=== PATIENT | male | born 1960 | race Caucasian/White ===

== ENCOUNTER 2017-02-28 17:54 | Emergency (ER) | payer OTHER ==
[~2017-02-28] VITALS: Ht 170.2 cm; Wt 65.0 kg
[~2017-02-28 17:54] MED LIST: EPIPEN 2-PAK1 MG/ML IM; GENTAMICIN EYE D5 ML OP; MOTRIN 200200 MG/TAB PO; MOTRIN 800800 MG/TAB PO; NORCO 325 MG-51 TAB PO; PERCOCET 325 MG1 TA2 PO; PRILOTC PO; PROTONIX20 MG; ZOLOFT25 MG PO
[2017-02-28 18:53] LABS: BASO % 0.5 % (0.0-2.0); EOS % 0.4 % (0-4.0); GRAN # 6.4 (1.4-6.5); GRAN % 82.4 % (42.2-75.2); HEMATOCRIT 47.1 % (42.0-52.0); HEMOGLOBIN 17.3 g/dl (13.5-18.0); LYMPH % 12.3 % (20.0-51.0); MEAN CELL VOLUME 90 fl (80.0-100.0); MEAN CORPUSCULAR HEMOGLOBIN 33 pg (27.0-31.0); MEAN CORPUSCULAR HGB CONC 37 g/dl (33.0-37.0); MEAN PLATELET VOLUME 8.8 fl (7.4-10.4); MONO # 0.3 (0.1-0.6); MONO % 4.1 % (1.7-9.3); PLATELET COUNT 194 K/mm3 (130-400); RED BLOOD COUNT 5.25 M/mm3 (4.20-5.60); REDCELL DISTRIBUTION WIDTH-CV 12.7 % (11.5-14.5)
[2017-02-28 19:02] LABS: ALANINE AMINOTRANSFERASE 45 U/L (21-72); ALBUMIN 4.8 gm/dL (3.5-5.0); ALCOHOL(ethanol),MEDICAL 238 mg/dL; ALKALINE PHOSPHATASE 91 U/L (50-136); ANION GAP 16 mmol/L (7-16); AST,SGOT 46 U/L (15-37); BILIRUBIN,TOTAL 1.2 mg/dL (0.0-1.0); BLOOD UREA NITROGEN 3 mg/dL (9-20); CALCIUM 9.3 mg/dL (8.4-10.2); CARBON DIOXIDE 24 mmol/L (22-30); CHLORIDE 101 mmol/L (98-107); CREATININE, serum 0.85 mg/dL (0.66-1.25); GLUCOSE 198 mg/dL (74-106); POTASSIUM 3.9 mmol/L (3.4-5.0); SODIUM 140 mmol/L (137-145); TOTAL PROTEIN 7.4 gm/dL (6.4-8.2)
[2017-02-28 19:03] LABS: TRICYCLIC ANTIDEPRESS URINE NEGATIVE
[2017-02-28 19:04] LABS: ACETAMINOPHEN < 10 ug/mL (10-30); SALICYLATE < 1.0 mg/dL
[2017-02-28 23:42] VITALS: BP 124/90; PULSE 90
== END 2017-02-28 23:43 | disposition short-term general hospital (02) ==
LOC: COL.ER 17:54
PROVIDERS: Family Medicine
DX: S06.4X9A Epidural hemorrhage with loss of consciousness of unspecified duration, initial encounter (principal); F10.99 Alcohol use, unspecified with unspecified alcohol-induced disorder; Y90.8 Blood alcohol level of 240 mg/100 ml or more; W18.39XA Other fall on same level, initial encounter; W22.8XXA Striking against or struck by other objects, initial encounter; Y92.009 Unspecified place in unspecified non-institutional (private) residence as the place of occurrence of the external cause

== ENCOUNTER 2018-04-14 14:01 | Emergency (ER) | payer OTHER | END 2018-04-14 17:06 | disposition home or self-care (01) | LOC: COL.ER 14:01 | DX: R03.0 Elevated blood-pressure reading, without diagnosis of hypertension (principal); H53.9 Unspecified visual disturbance; R73.03 Prediabetes; M19.90 Unspecified osteoarthritis, unspecified site; K22.70 Barrett's esophagus without dysplasia; Z90.49 Acquired absence of other specified parts of digestive tract; Z88.5 Allergy status to narcotic agent ==

== ENCOUNTER 2018-08-29 08:00 | Outpatient (RCR) | payer OTHER ==
[~2018-08-29 08:00] MED LIST changes: +PRINIVIL5 MG PO; -PROTONIX20 MG; +PROTONIX20 MG PO
== END 2018-10-08 10:34 | disposition home or self-care (01) ==
LOC: WSPT 08:00
DX: M25.512 Pain in left shoulder (principal)